=== PATIENT | female | born 1990 | race African-American/Black ===

== ENCOUNTER 2024-12-01 15:59 | Emergency (ER) | payer OTHER, SELFPAY ==
[2024-12-01] VITALS (14 sets, daily range): BP systolic 93–124; BP diastolic 49–80; PULSE 68–97; RESP 15–16; TEMP 36.6; O2SAT 98–100
--- NOTE | ~2024-12-01 | US_ITS ---
EXAMINATION: US OB <=14 wk fetus w TV INDICATION: newly , pain, r/o ectopic TECHNIQUE: Sonography of the pelvis was performed by transabdominal and transvaginal techniques. COMPARISON: None. RESULT: Uterus: 8.7 x 5.5 x 5.9 cm. Retroverted. Homogenous myometrium. Intrauterine gestational sac: Single present. Mean Sac Diameter: 1.3 cm, corresponding gestational age 6 week 1 days. Yolk sac: 0.3 cm . Embryo: Single present. [place] rump length: 0.52 cm, corresponding gestational age 6 weeks, 2 days. Gestational heart rate: Not confidently visualized. Subgestational hematoma: Absent . Right ovary: 2.8 x 1.5 x 1.2 cm. Vascular flow is present. No adnexal mass. Left ovary: 3.8 x 1.9 x 2.1 cm. Vascular flow is present. 1.6 cm corpus luteal cyst. Pelvis free fluid: Small volume left adnexal and pelvic fluid. IMPRESSION: Intrauterine of uncertain viability. heart motion not definitively visualized. Recomm end clinical and sonographic follow-up. Estimated Gestational Age: 6 weeks, 2 days by crown rump length. LORENA by ultrasound 07/25/2025. No sonographic evidence of ectopic . Reviewed, dictated and finalized at location K. OPE HYDROLOGIST IMPRESSION: Intrauterine of uncertain viability. heart motion not definitiv jb visualized. Recommend clinical and sonographic follow-up. Estimated Gestational Age: 6 weeks, 2 days by crown rump length. LORENA by ultras ound 07/25/2025. No sonographic evidence of ectopic .
--- OUTSIDE RECORDS SUMMARY | 2024-12-01 16:02 | XMS_ITS | CONTINUITY OF CARE DOCUMENT ---
Author Name marisel joiner Address Unknown Organization [facility] Address [address] [place] [address] Phone [phone] Care Team Providers Care Transplant Worker Name Role Phone Arley Watters MD Unavailable [phone] CHINTAN DOZIER MD Unavailable [phone] INSURANCE PROVIDERS Payer name Policy type / Coverage type Jose red democrat [place] [employer] MEDICA[employer] (2) Medicaid [id number]
--- OUTSIDE RECORDS SUMMARY | 2024-12-01 20:23 | XMS_ITS | Clinical Summary ---
Author Organization [facility] at the Medical Office Building Address [address] [place] [id number] Care Team Providers Care International Relations Professor Name Role Phone No, Physician Primary Care Provider [phone] Pepito Ge MD Unavailable [phone] Allergies No known active allergies Medications metoclopramide (REGLAN) 10 mg tablet Take 1 tablet (10 mg total) by mouth 4 (four) times a day before meals and nightly 120 tablet 1 Active folic acid (FOLVITE) 1 mg tablet Take 1 tablet (1 mg total) by mouth daily 30 tablet 1 1 Active WesTab Plus 27 mg iron- 1 mg tablet Take 1 tablet by mouth daily 1 Active acetaminophen (TylenoL) 325 mg tablet Take 2 tablets (650 mg total) by mouth every 6 (six) hours as needed for pain or headaches 30 tablet 1 1 Active ibuprofen (ADVIL,MOTRIN) 600 mg tablet Take 1 tablet (600 mg total) by mouth every 6 (six) hours as needed for pain 30 tablet 1 1 Active Active Problems Problem Noted Date Diagnosed Date Missed 09/27/2021 Surgical History Surgery Date Site/Laterality Comments US ABDOMEN COMPLETE W LIVER DOPPLER (C) 04/30/2018 R ight Medical History Medical History Date Comments Miscarriage Family History Medical History Relation Name Comments Breast cancer Neg Hx Social History Tobacco Use Types Packs/Day Years Used Date Smoking Tobacco: Never AUDIT-C Answer Date Recorded Q1: How often do you have a drink containing alc ohol? Never 09/27/2021 Average Number of Drinks Not on file 021 Q3: How often do you have si x or more drinks on one occasion? Never 09/27/2021 Comments Unknown Sex and Gender Information Value Date Recorded Sex Assigned at Not on file Legal Sex Female 9:32 AM MATE SHIP Gender Identity Not on file Sexual Orientation Not on file Obstetrics History Para Term AB IAB SAB Ectopic Multiple Livin g Live Births 3 1 1 1 1 1 Date Outcome GA Total Labor Labor/2nd/3rd Weight Sex Type Anes PTL Madai A1 A5 Name Clin Term SAB Last Filed Vital Signs Vital Sign Reading Time Taken Comments Blood Pressure 119/75 10/04/2021 9:10 AM MATE SHIP Pulse 82 10/04/2021 9:10 AM MATE SHIP Temperature 37.2 ??C (99 ??F) 10/04/2021 8:40 AM MATE SHIP Respiratory Rate 16 10/04/2021 8:40 AM MATE SHIP Oxygen Saturation 98% 10/04/2021 9:00 AM MATE SHIP Inhaled Oxygen Concentration - - Weight 71.8 kg (158 lb 3 oz) 10/04/2021 6:18 AM MATE SHIP Height 165.1 cm (5' 5 ) 10/04/2021 6:18 AM MATE SHIP Body Mass Index 26.32 10/04/2021 6:18 AM MATE SHIP Plan of Treatment Not on file Insurance [place] Care Teams International Relations Professor Relationship Specialty Start Date End Date No, Physician PCP - General 09/07/21 Pepito Ge MD Consulting Physician Obstetrics and Gynecology 10/04/21
--- OUTSIDE RECORDS SUMMARY | 2024-12-01 20:23 | XMS_ITS | Referral Summary ---
Author Organization [facility] at the Medical Office Building Address [address] [place] [id number] Care Team Providers Care Analysis Internship Name Role Phone No, Physician Primary Care Provider [phone] Pepito Ge MD Unavailable [phone] Allergies No known active allergies Medications metoclopramide [...] Problem Noted Date Diagnosed Date Missed 09/27/2021 Social History Tobacco Use Types Packs/Day Years [...] on file Legal Sex Female 9:32 AM RUBBER INSULATOR Gender Identity Not on file Sexual Orientation Not on file Last Filed Vital Signs Vital Sign Reading Time Taken Comments Blood Pressure 119/75 10/04/2021 9:10 AM RUBBER INSULATOR Pulse 82 10/04/2021 9:10 AM RUBBER INSULATOR Temperature 37.2 ??C (99 ??F) 10/04/2021 8:40 AM RUBBER INSULATOR Respiratory Rate 16 10/04/2021 8:40 AM RUBBER INSULATOR Oxygen Saturation 98% 10/04/2021 9:00 AM RUBBER INSULATOR Inhaled Oxygen Concentration - - Weight 71.8 kg (158 lb 3 oz) 10/04/2021 6:18 AM RUBBER INSULATOR Height 165.1 cm (5' 5 ) 10/04/2021 6:18 AM RUBBER INSULATOR Body Mass Index 26.32 10/04/2021 6:18 AM RUBBER INSULATOR Plan of Treatment Not on file Insurance [facility] Care Teams Analysis Internship Relationship Specialty Start Date End Date No, Physician PCP - General 09/07/21 Pepito Ge MD Consulting Physician Obstetrics and Gynecology 10/04/21
--- OUTSIDE RECORDS SUMMARY | 2024-12-01 20:23 | XMS_ITS | Clinical Summary ---
Author Organization [facility] Address [facility] [place] [address] [place] [address] Care Team Providers Care Restaurant Shift Supervisor Name Role Phone None, Provider MD Primary Care Provider Unavaila ble Allergies No known active allergies Medications ondansetron 4 MG disintegrating tablet Take 1 tablet (4 mg total) by mouth every 8 (eight) hours as needed. 20 tablet 9 Active Social History Tobacco Use Types Packs/Day Years Used Date Smoking Tobacco: Never Smokeless Tobacco: Never Alcohol Use Standard Drinks/Week Comments No 0 (1 standard drink = 0.6 oz pur e alcohol) AUDIT-C Answer Date Recorded Frequency of Alcohol Consumption Never 10/23/2019 Average Number of Drinks Not on file 019 Frequency of Binge Drinking Not on file 10/06 Comments No Sex and Gender Information Value Date Recorded Sex Assigned at Not on file Legal Sex Female 8:29 PM CDT Gender Identity Not on file Sexual Orientation Not on file Last Filed Vital Signs Vital Sign Reading Time Taken Comments Blood Pressure 118/86 01/07/2021 5:34 PM RECOVERY ANALYST Pulse 98 01/07/2021 5:34 PM RECOVERY ANALYST Temperature 36.9 ??C (98.5 ??F) 01/07/2021 5:34 PM CS T Respiratory Rate 18 01/07/2021 5:34 PM RECOVERY ANALYST Oxygen Saturation 98% 01/07/2021 5:34 PM RECOVERY ANALYST Inhaled Oxygen Concentration - - Weight 67.6 kg (149 lb) 01/07/2021 5:34 PM RECOVERY ANALYST Height 165.1 cm (5' 5 ) 01/07/2021 5:34 PM RECOVERY ANALYST Body Mass Index 24.79 01/07/2021 5:34 PM RECOVERY ANALYST Plan of Treatment Health Maintenance Due Date Last Done Comments Cervical Cancer Screening Pa p Smear (Age 30 to 64) Every 3 Years 1988 Annual Physical 1991 Hepatitis C 2006 DTaP, Tdap and Td Vaccines ( 1 - Tdap) 2007 Hepatitis B Vaccines (1 of 3 - 19+ 3-dose series) 2007 Cervical Cancer Screening Pa p with HPV Testing (Age 30 to 64) Every 5 Years 2018 Cervical Cancer Screening with HPV 2018 COVID-19 Vaccine ( - 2023-2 5 season) 2024 Influenza Adult (#1) 2024 HPV Vaccines Aged Out No longer eligi ble based on patient's age to complete this topic Meningococcal B Vaccine Aged Out No l onger eligible based on patient's age to complete this topic Meningococcal Vaccine Aged Out No inocencio christa eligible based on patient's age to complete this topic Pneumococcal Vaccine: Pediat rics (0 to 5 Years) and At-Risk Patients (6 to 64 Years) Aged Out No longer eligible b ased on patient's age to complete this topic RSV Immunizations Under 20 Months Aged Out No longer eligible based on patient's age to complete this topic Insurance [facility] [employer] Care Teams Restaurant Shift Supervisor Relationship Specialty Start Date End Date None, Provider, PCP - General 10/23/19
--- OUTSIDE RECORDS SUMMARY | 2024-12-01 20:23 | XMS_ITS | CONTINUITY OF CARE DOCUMENT ---
Author Name marisel joiner Address Unknown Organization [facility] Address [address] [place] [address] Phone [phone] Care Team Providers Care Camera Control Operator Name Role Phone Arley Watters MD Unavailable CHINTAN DOZIER MD Unavailable INSURANCE PROVIDERS Payer name Policy type / Coverage type Jose red constitution party [place] [employer] MED[employer] (2) Medicaid [id number]
[2024-12-01 20:37] LABS: Basophils Percent Auto 0.5 % (0.2-1.2); Eosinophils Absolute Auto 0.2 K/mm3 (0-0.3); Eosinophils Percent Auto 2.7 % (0-4.4); Hematocrit 33.1 % (37.0-47.0); Hemoglobin 10.9 g/dL (12.0-15.0); Immature Granulocyte Absolute 0.03 K/mm3 (0.00-0.031); Immature Granulocyte Percent A 0.4 % (0-0.5); Lymphocytes Absolute Auto 1.96 K/mm3 (0.9-3.2); Lymphocytes Percent Auto 24.1 % (18.3-44.2); Mean Corpuscular HGB Conc 32.9 g/dl (32-36); Mean Corpuscular Hemoglobin 30.2 pg (26-34); Mean Corpuscular Volume 91.7 fl (80-100); Mean Platelet Volume 11.3 fl (7.4-10.4); Monocytes Absolute Auto 0.7 K/mm3 (0.1-0.6); Monocytes Percent Auto 8.7 % (2.6-8.5); Neutrophils Absolute Auto 5.2 K/mm3 (1.3-6.7); Neutrophils Percent Auto 63.6 % (45.5-73.1); Platelet Count Result 231 k/mm3 (150-375); Red Blood Count 3.61 M/mm3 (4.2-5.4); Red Cell Distribution Width 14.6 % (11.5-14.5); White Blood Count 8.1 K/mm3 (4.5-10.0)
--- NOTE | 2024-12-01 20:38 | ED_ITS ---
HPI - Abdominal Pain General Chief Complaint: Abdominal Pain Stated Complaint: preg, abd pain, vomiting Time Seen by Provider: 12/01/24 19:56 History of Present Illness HPI narrative: 34-year-old female presenting to the emergency department for lower abdominal cramping, constipation and some nauseousness with vomiting 2 times today. Patient just found out she was last week, last menstrual period 10/24/2024. Patient called her OBGYN who is associated with [facility] and was not able to set up an appointment until about 8 weeks of . Patient denies any vaginal bleeding or spotting. Patient states that she has found nauseousness presently but is able tolerate p.o. intake and states that the drinking Gatorade does help her nauseousness. She states she has had minimal bowel movements over last few days endorses cramping abdominal sensations. She believe she is having a miscarriage despite not have any kind of bleeding or spotting. She states that her breasts are no longer as tender as they usually are and she feels the same way she felt during her last miscarriage over a year ago. Denies any injury or trauma. She was otherwise in her normal state of health. Denies any urinary complaints. Related Data Allergies Allergy/AdvReac Type Severity Reaction Status Date / Time No Known Allergies Allergy Verified 12/01/24 16:18 Review of Systems 2 Review of Systems: As reviewed above in HPI Exam 2 Narrative: GENERAL: [Well-appearing, well-nourished, and in no acute distress.] HEAD: [Normocephalic, atraumatic.] EYES: [PERRLA and EOMI.] ENT: Nares clear, no rhinorrhea or epistaxis. Mucous membranes moist. NECK: Supple. CHEST: [Clear to auscultation. No respiratory distress.] HEART: [Regular rate and rhythm]. No murmur heard. [Normal peripheral pulses.] ABDOMEN: [Soft, nondistended], [nontender], [No rigidity or guarding] EXTREMITIES: Normal range of motion. [No edema.] SKIN: Warm, dry, no rash. NEURO: [No focal deficits]. Alert and oriented [x3.] PSYCH: [Normal mood and affect.] Course Vital Signs Vital signs: Vital Signs Temperature 36.6 C 12/01/24 16:13 Pulse Rate 97 12/01/24 16:13 Respiratory Rate 15 12/01/24 16:13 Blood Pressure 124/70 12/01/24 16:13 Pulse Oximetry 100 12/01/24 16:13 Oxygen Delivery Room Air 12/01/24 16:13 Temperature 36.6 C 12/01/24 16:13 Pulse Rate 97 12/01/24 16:13 Respiratory Rate 15 12/01/24 16:13 Blood Pressure 124/70 12/01/24 16:13 Pulse Oximetry 100 12/01/24 16:13 Oxygen Delivery Room Air 12/01/24 16:13 MDM - Abdominal Pain MDM Narrative Medical decision making narrative: 34-year-old female presenting with lower abdominal pain, cramping, nauseousness, vomiting and constipation. Patient states that she just found out she was last week with approximate last menstrual period 10/24/2024. Approximately 6 weeks based on LMP. Denies any vaginal bleeding or spotting. She is otherwise well-appearing, not in acute distress with normal vital signs of any tachycardia, fever, hypoxia or tachypnea. Soft nontender nondistended abdomen. She is tolerating p.o. intake and states Gatorade helps her feel less nauseous and she is able tolerate this. No history of abdominal surgeries or Caesarean sections. Nondistended abdomen. Patient believe she is having a miscarriage she feels very similar to last time she miscarried. She had to have a suction D and C last time. Denies any history of ectopic or other complications. test with quantitative beta hCG ordered, CBC, CMP, pelvic ultrasound ordered. Patient tried Reglan, diphenhydramine fluid bolus for nausea symptom control prior to re-evaluation. Workup shows no leukocytosis, hemoglobin of 10.9, no baseline. Electrolyte profile within normal limits, normal renal and hepatic function panel. Negative COVID fluid RSV. Beta hCG elevated at 27,878. Pelvic ultrasound shows intrauterine with uncertain viability as no detectable heart motion but just H&H of 6 weeks and 2 days which makes this not definitive. No evidence of any ectopic . Patient will require repeat beta hCG level and repeat ultrasonography with her OBGYN. She was re-evaluated had symptomatic improvement with her nausea and vomiting and was able tolerate p.o. intake. We will send her home with some medications to control her symptoms and instructions to contact her OBGYN for close outpatient follow-up. She was given strict return precautions and verbalized understanding of them. She was safe for discharge home at this time. Medical Records Attestation: I reviewed the patient's medical records. Lab Data Attestation: I reviewed the patient's lab results. 12/01/24 20:28 12/01/24 20:28 Labs: Lab Results 12/01/24 Range/Units 20:28 WBC 8.1 (4.5-10.0) K/mm3 RBC 3.61 L (4.2-5.4) M/mm3 Hgb 10.9 L (12.0-15.0) g/dL Hct 33.1 L (37.0-47.0) % MCV 91.7 (80-100) fl MCH 30.2 (26-34) pg MCHC 32.9 (32-36) g/dl RDW 14.6 H (11.5-14.5) % Plt Count 231 (150-375) k/mm3 MPV 11.3 H (7.4-10.4) fl Immature Gran % (Auto) 0.4 (0-0.5) % Neut % (Auto) 63.6 (45.5-73.1) % Lymph % (Auto) 24.1 (18.3-44.2) % [place] % (Auto) 8.7 H (2.6-8.5) % Eos % (Auto) 2.7 (0-4.4) % Baso % (Auto) 0.5 (0.2-1.2) % Lymph # (Auto) 1.96 (0.9-3.2) K/mm3 [place] # (Auto) 0.7 H (0.1-0.6) K/mm3 Eos # (Auto) 0.2 (0-0.3) K/mm3 Baso # (Auto) 0.0 (0.0-0.1) K/mm3 Abs Immat Gran (auto) 0.03 (0.00-0.031) K/mm3 Absolute Neuts (auto) 5.2 (1.3-6.7) K/mm3 Absolute Nucleated RBC 0.000 (0.0-0.012) K/mm3 Nucleated RBC % 0.0 (0.0-0.2) % Sodium 135 L (137-145) mmol/L Potassium 3.9 (3.4-5.0) mmol/L Chloride 103 (98-107) mmol/L Carbon Dioxide 26 (22-30) mmol/L Anion Gap 6 (4-12) mmol/L BUN 14 (7-17) mg/dL Creatinine 0.52 L (0.7-1.0) mg/dL Estim Creat Clear Calc 113 ml/min Estimated GFR > 60 (59 - ) Glucose 105 (65-110) mg/dL Calcium 9.0 (8.4-10.2) mg/dL Total Bilirubin 0.3 (0.2-1.3) mg/dL AST 24 (14-36) U/L ALT 19 (6-35) U/L Alkaline Phosphatase 40 (38-126) U/L Total Protein 7.0 (6.3-8.2) g/dL Albumin 4.0 (3.5-5.1) g/dL Beta HCG, Quant 61037.00 mIU/ML Influenza A (RT-PCR) Negative (Negative) Influenza B (RT-PCR) Negative (Negative) RSV (RT-PCR) Negative (Negative) SARS-CoV-2 RNA (RT-PCR) Negative (Negative) Imaging Data Attestation: I personally reviewed and interpreted this imaging study as follows: Radiologist's impression: ITS Impressions Obstetrics Ultrasound 12/01/24 17:52 IMPRESSION: Intrauterine of uncertain viability. heart motion not definitively visualized. Recommend clinical and sonographic follow-up. Estimated Gestational Age: 6 weeks, 2 days by crown rump length. LORENA by ultrasound 07/25/2025. No sonographic evidence of ectopic . Discharge Plan Discharge Clinical Impression: Intrauterine , Nausea and vomiting during , Constipation Patient Disposition: Home, Self-Care Condition: Stable Instructions: Antibiotic Form, Nausea and Vomiting in (ED), (ED), Constipation (ED) Additional Instructions: Your ultrasound shows 6 weeks 2 days but no identifiable heart tone yet. Beta hCG elevated at 27,878. Could be signs of an ongoing early versus a potential miscarriage any need to follow-up with her OBGYN on a short-term basis. If you develop any vaginal bleeding or spotting please return to the emergency department at that time. We will send you home with medications for nausea, vomiting and constipation control. MiraLax 17 g twice daily in addition to magnesium citrate for bowel movement regimen and Reglan with Bentyl for abdominal cramping and nausea and vomiting. Patient Language: Vietnamese Prescriptions: New polyethylene glycol 3350 [Miralax] 17 gram powder in packet 17 g PO BID Qty: 30 0RF magnesium citrate Solution 150 ml PO BID PRN (Reason: constipation) Qty: 296 0RF Follow-up/Referrals: Evan,Ethan Jones MD [Primary Care Provider] - Time of Disposition: 22:05
[2024-12-01 20:43] LABS: Alkaline Phosphatase 40 U/L (38-126); Anion Gap 6 mmol/L (4-12); Aspartate Amino Transferase 24 U/L (14-36); Bilirubin,Total 0.3 mg/dL (0.2-1.3); Blood Urea Nitrogen 14 mg/dL (7-17); Carbon Dioxide 26 mmol/L (22-30); Chloride 103 mmol/L (98-107); Estimated CRCL calculation 113 ml/min; Estimated Glomerular Filt Rate > 60; Glucose 105 mg/dL (65-110); Potassium 3.9 mmol/L (3.4-5.0); Sodium 135 mmol/L (137-145)
[2024-12-01 20:50] LABS: Alanine Aminotransferase 19 U/L (6-35)
[2024-12-01 21:17] LABS: Influenza A QL RT-PCR Negative (Negative); Influenza B QL RT-PCR Negative (Negative); RSV RNA, RT-PCR Negative (Negative); SARS-CoV-2 RNA PCR Negative (Negative)
[2024-12-01] MEDS: LACTATED RINGERS 1,000 ML 999 ML IV CONT (21:20)
[2024-12-01] MEDS: METOCLOPRAMIDE HCL INJ 10 MG/2 ML VIAL IV PUSH (21:20)
[2024-12-01] MEDS: SODIUM CHLORIDE 0.9% IV 200 ML (21:20)
[2024-12-01] MEDS: diphenhydrAMINE HCl INJ 50 MG/ML VIAL 25 MG IV PUSH (21:20)
== END 2024-12-01 22:56 | disposition home or self-care (01) ==
PROVIDERS: Emergency Medicine; Physician Assistant; Emergency Provider Student in an Organized Health Care Education/Training Program; PCP Obstetrics & Gynecology
DX: O21.9 Vomiting of pregnancy, unspecified (principal); O99.611 Diseases of the digestive system complicating pregnancy, first trimester; K59.00 Constipation, unspecified; O09.521 Supervision of elderly multigravida, first trimester; Z3A.01 Less than 8 weeks gestation of pregnancy; Z20.822 Contact with and (suspected) exposure to COVID-19
CPT/HCPCS: 36415; 76801; 76817; 80053; 84702; 85025; 87637; 96361; 96374; 96375; 99284; J1200; J2765; J7120